=== PATIENT | male | born 1970 | race Caucasian/White ===

== ENCOUNTER 2016-05-07 13:23 | Emergency (ER) | payer BC | END 2016-05-07 14:30 | disposition home or self-care (01) | LOC: ER 13:23 | DX: H66.91 Otitis media, unspecified, right ear (principal); J84.9 Interstitial pulmonary disease, unspecified; J40 Bronchitis, not specified as acute or chronic; R05 Cough; K21.9 Gastro-esophageal reflux disease without esophagitis; Z79.899 Other long term (current) drug therapy | CPT/HCPCS: 71020; 94664; 96372; 99283-25; J2930 ==

== ENCOUNTER 2016-06-04 09:45 | Emergency (ER) | payer BC | END 2016-06-04 12:09 | disposition home or self-care (01) | LOC: ER 09:45 | DX: J01.90 Acute sinusitis, unspecified (principal); R05 Cough ==